=== PATIENT | female | born 1950 | race Caucasian/White ===

== ENCOUNTER → 2017-08-12 | Outpatient (CLI) | payer OTHER | LOC: RAH 13:47 | PROVIDERS: ATTEND Surgery | DX: N60.01 Solitary cyst of right breast (principal); N60.02 Solitary cyst of left breast | CPT/HCPCS: 76641 ==

== ENCOUNTER → 2018-09-30 | Outpatient (CLI) | payer OTHER | END | disposition home or self-care (01) | LOC: RAH 13:42 | PROVIDERS: ATTEND Internal Medicine | DX: N60.01 Solitary cyst of right breast (principal); N60.02 Solitary cyst of left breast | CPT/HCPCS: 76641; 77066 ==

== ENCOUNTER → 2018-11-22 | Outpatient (CLI) | payer OTHER ==
[2018-11-22 09:36] LABS: INR 1.02 (0.85-1.15); PARTIAL THROMBOPLASTIN TIME 28.6 SEC (26.3-35.5); PROTHROMBIN TIME 10.7 SEC (9.6-11.6)
== END | disposition home or self-care (01) ==
LOC: RAH 08:59
PROVIDERS: ATTEND Surgery
DX: N60.01 Solitary cyst of right breast (principal)
CPT/HCPCS: 36415; 85610; 85730

== ENCOUNTER → 2018-11-29 | Outpatient (CLI) | payer OTHER ==
--- NOTE | 2018-11-29 10:00 | NUR ---
U/S GD LT BREAST CYST ASPIRATION PROCEDURE PERFORMED BY DR Gary BARBOSA. PUNCTURE SITE LT BREAST AND PATIENT TOLERATED PROCEDURE WELL. SPECIMEN COLLECTED AND SENT TO LAB. TISSUE MARKER DEPLOYED TO ASPIRATION SITE. AND VERIFIED WITH MAMMOGRAM OF LT BREAST END OF PROCEDURE AT 0930. ASPIRATION NEEDLE REMOVED AND DRESSING APPLIED. NO BLEEDING NOTED. DISCHARGE INSTRUCTIONS GIVEN TO PATIENT AND VERBALIZED UNDERSTANDING. DISCHARGED VIA AMBULATION AT 1000. AAO X3 WITH NO C/O PAIN.
== END | disposition home or self-care (01) ==
LOC: DAH 07:47 → EDSTATUS 08:00 → RAH 08:05
PROVIDERS: ATTEND Internal Medicine
DX: N60.02 Solitary cyst of left breast (principal); I73.9 Peripheral vascular disease, unspecified; E78.00 Pure hypercholesterolemia, unspecified; I45.10 Unspecified right bundle-branch block; F17.210 Nicotine dependence, cigarettes, uncomplicated; Z80.52 Family history of malignant neoplasm of bladder; Z79.899 Other long term (current) drug therapy; Z98.890 Other specified postprocedural states
CPT/HCPCS: 19000; 76942; 77065; A4215

== ENCOUNTER → 2019-09-27 | Outpatient (CLI) | payer OTHER | END | disposition home or self-care (01) | LOC: RAH 13:00 | PROVIDERS: ATTEND Internal Medicine | DX: N60.12 Diffuse cystic mastopathy of left breast (principal) | CPT/HCPCS: 77066 ==

== ENCOUNTER → 2020-03-05 | Outpatient (CLI) | payer OTHER | END | disposition home or self-care (01) | LOC: RAH 08:17 | PROVIDERS: ATTEND Internal Medicine | DX: R07.9 Chest pain, unspecified (principal); M47.814 Spondylosis without myelopathy or radiculopathy, thoracic region | CPT/HCPCS: 71046; 71100 ==

== ENCOUNTER → 2020-03-20 | Outpatient (CLI) | payer OTHER | END | disposition home or self-care (01) | LOC: RAH 10:08 | PROVIDERS: ATTEND Internal Medicine | DX: N64.4 Mastodynia (principal) | CPT/HCPCS: 76641 ==

== ENCOUNTER → 2020-08-31 | Outpatient (CLI) | payer OTHER | END | disposition home or self-care (01) | LOC: RAH 08:17 | PROVIDERS: ATTEND Internal Medicine | DX: N60.02 Solitary cyst of left breast (principal); N60.12 Diffuse cystic mastopathy of left breast; R92.8 Other abnormal and inconclusive findings on diagnostic imaging of breast; R92.2 Inconclusive mammogram | CPT/HCPCS: 76641; 77066 ==

== ENCOUNTER → 2020-09-11 | Outpatient (CLI) | payer OTHER ==
[2020-09-11 09:30] LABS: INR 1.1 (0.85-1.15); PROTHROMBIN TIME 11.9 SEC (9.6-11.6)
[2020-09-11 09:32] LABS: PARTIAL THROMBOPLASTIN TIME 28.8 SEC (26.3-35.5)
== END | disposition home or self-care (01) ==
LOC: RAH 08:40
PROVIDERS: ATTEND Internal Medicine
DX: C50.512 Malignant neoplasm of lower-outer quadrant of left female breast (principal); Z79.01 Long term (current) use of anticoagulants
CPT/HCPCS: 19083; 36415; 85610; 85730

== ENCOUNTER → 2021-09-02 | Outpatient (CLI) | payer OTHER | END | disposition home or self-care (01) | LOC: RAH 08:50 | PROVIDERS: ATTEND Internal Medicine Medical Oncology | DX: C50.512 Malignant neoplasm of lower-outer quadrant of left female breast (principal); N63.10 Unspecified lump in the right breast, unspecified quadrant; Z98.890 Other specified postprocedural states | CPT/HCPCS: 77066 ==

== ENCOUNTER 2022-04-04 11:33 | Observation (INO) | payer OTHER ==
[~2022-04-04] VITALS: Ht 172.7 cm; Wt 49.4 kg
[2022-04-04 12:00] LABS: BASOPHILS % (AUTO) 0.7 % (0.0-5.0); EOSINOPHILS % (AUTO) 0.8 % (0.0-8.0); HEMATOCRIT 38.5 % (36-48); LYMPHOCYTES % (AUTO) 14.8 % (21.0-51.0); MEAN CORPUSCULAR HEMOGLOBIN 30.8 pg (27.0-33.0); MEAN CORPUSCULAR HGB CONC 33.2 g/dL (32.0-36.0); MEAN CORPUSCULAR VOLUME 92.5 fL (79-99); MONOCYTES % (AUTO) 8.8 % (3.0-13.0); NEUTROPHILS % (AUTO) 74.6 % (40.0-77.0); PLATELET COUNT (AUTO) 204 K/uL (130-400); RED BLOOD CELL COUNT(AUTO) 4.16 MIL/uL (4.00-5.50); RED CELL DISTRIBUTION WIDTH 12.9 % (11.0-15.5); WHITE BLOOD COUNT (AUTO) 9.6 K/uL (4.8-10.8)
[2022-04-04 12:20] LABS: CREATININE 0.8 mg/dL (0.5-1.5); POTASSIUM 3.5 mmol/L (3.5-5.1)
[2022-04-04 12:25] LABS: ALBUMIN 3.5 g/dL (3.5-5.0); TOTAL PROTEIN, SERUM 7.2 g/dL (6.0-8.3)
[2022-04-04 14:33] VITALS: BP 117/33
[2022-04-04] MEDS ORDERED: ATOR10 PO (14:49)
[2022-04-04] MEDS ORDERED: MORPHINE 4 MG SYG IVP ONE (15:00)
[2022-04-04] MEDS ORDERED: NITROGLYCERIN 1GM OINT 1 INCH/1GM TD ONE (15:00)
[2022-04-04] MEDS ORDERED: DIPHENHYDRAMINE HCL 25 MG CAPSULE PO PRN (15:30)
[2022-04-04] MEDS ORDERED: ONDANSETRON 4MG INJ IV PRN (15:30)
[2022-04-04] MEDS ORDERED: NITROGLYCERIN 0.4 MG SL TAB SL PRN (15:30)
[2022-04-04] MEDS ORDERED: LACTULOSE 20 GM/30 ML UDCUP PO PRN (15:30)
[2022-04-04] MEDS ORDERED: ACETAMINOPHEN 325 MG TAB PO PRN ×2 (15:30)
[2022-04-04] MEDS ORDERED: GUAIFENESIN-DM 200/20 MG 10 ML PO PRN (15:30)
[2022-04-04] MEDS ORDERED: DiphenhydrAMINE HCL 50 MG/ML VIAL IV PRN (15:30)
[2022-04-04] MEDS ORDERED: MAG/ALUM/SIMETH 30 ML UDCUP PO PRN (15:30)
[2022-04-04] MEDS ORDERED: HEPARIN 5,000 UNIT VIAL SQ SCH (21:00)
[2022-04-04] MEDS ORDERED: FAMOTIDINE 20MG VIAL IV SCH (21:00)
[2022-04-04] MEDS ORDERED: FAMOTIDINE 20MG TAB PO SCH (21:00)
[2022-04-05] MEDS ORDERED: ASPIRIN 81MG CHEW TAB PO SCH (09:00)
[2022-04-05 22:40] LABS: ABG BASE EXCESS 0.6 mmol/L (-2.0-3.0); ABG HCO3 24.6 mmol/L (21.0-28.0); ABG OXYGEN SATURATION 97.6 % (95.0-99.0); ABG PCO2 38 mmHg (32-45)
== END 2022-04-04 16:55 | disposition home or self-care (01) ==
LOC: EDH 11:33 → EDHIP 14:55
PROVIDERS: ADMIT Internal Medicine; ATTEND Internal Medicine
DX: R07.89 Other chest pain (principal); Z20.822 Contact with and (suspected) exposure to COVID-19; I24.9 Acute ischemic heart disease, unspecified; N64.4 Mastodynia; C50.912 Malignant neoplasm of unspecified site of left female breast; E78.00 Pure hypercholesterolemia, unspecified; Z85.3 Personal history of malignant neoplasm of breast; Z79.899 Other long term (current) drug therapy
CPT/HCPCS: 99285; 82550; 84484; 80053; 82803; 85025; 87804 ×2; 83605; 36415; 87635; 71045; 93005; 36600; G0378 ×2; C9803

== ENCOUNTER → 2022-09-03 | Outpatient (CLI) | payer OTHER ==
[~2022-09-03] MED LIST: ATOR10 PO
== END | disposition home or self-care (01) ==
LOC: RAH 09:44
PROVIDERS: ATTEND Internal Medicine Medical Oncology
DX: N63.41 Unspecified lump in right breast, subareolar (principal); N64.89 Other specified disorders of breast; C50.512 Malignant neoplasm of lower-outer quadrant of left female breast; R92.1 Mammographic calcification found on diagnostic imaging of breast; Z98.890 Other specified postprocedural states
CPT/HCPCS: 77066; G0279; 77062

== ENCOUNTER → 2022-09-10 | Outpatient (CLI) | payer OTHER | END | disposition home or self-care (01) | LOC: RAH 08:46 | PROVIDERS: ATTEND Internal Medicine Medical Oncology | DX: N60.01 Solitary cyst of right breast (principal); R92.2 Inconclusive mammogram; C50.512 Malignant neoplasm of lower-outer quadrant of left female breast | CPT/HCPCS: 76641 ==

== ENCOUNTER → 2023-03-10 | Outpatient (CLI) | payer OTHER | END | disposition home or self-care (01) | LOC: RAH 12:37 | PROVIDERS: ATTEND Internal Medicine Medical Oncology | DX: N60.01 Solitary cyst of right breast (principal); C50.512 Malignant neoplasm of lower-outer quadrant of left female breast; N63.11 Unspecified lump in the right breast, upper outer quadrant | CPT/HCPCS: 76641 ==

== ENCOUNTER 2023-06-09 13:21 | Emergency (ER) | payer OTHER ==
[~2023-06-09] VITALS: Ht 165.1 cm; Wt 49.9 kg
[2023-06-09 13:22] VITALS: BP 106/57; PULSE 64; RESP 16
[2023-06-09 13:59] LABS: INFLUENZA TYPE A Negative For Type A (NEGATIVE); INFLUENZA TYPE B Negative For Type B (NEGATIVE)
[2023-06-09 14:06] LABS: SARS-CoV-2, RNA, NAAT NEGATIVE SARS CoV-2 (NEGATIVE)
== END 2023-06-09 15:29 | disposition left against medical advice (07) ==
LOC: EDH 13:21
DX: R05.9 Cough, unspecified (principal); R09.89 Other specified symptoms and signs involving the circulatory and respiratory systems; Z53.21 Procedure and treatment not carried out due to patient leaving prior to being seen by health care provider; Z20.822 Contact with and (suspected) exposure to COVID-19
CPT/HCPCS: 99281; 87635; 87804 ×2; C9803

== ENCOUNTER → 2023-08-26 | Outpatient (CLI) | payer OTHER | END | disposition home or self-care (01) | LOC: RAH 10:00 | PROVIDERS: ATTEND Internal Medicine | DX: G31.89 Other specified degenerative diseases of nervous system (principal); F03.90 Unspecified dementia, unspecified severity, without behavioral disturbance, psychotic disturbance, mood disturbance, and anxiety | CPT/HCPCS: 70450 ==

== ENCOUNTER → 2023-09-07 | Outpatient (CLI) | payer OTHER | END | disposition home or self-care (01) | LOC: RAH 08:55 | PROVIDERS: ATTEND Internal Medicine Medical Oncology | DX: N63.11 Unspecified lump in the right breast, upper outer quadrant (principal); N60.01 Solitary cyst of right breast; C50.512 Malignant neoplasm of lower-outer quadrant of left female breast | CPT/HCPCS: 76641; 77066 ==